=== PATIENT | female | born 1985 | race Two or more races ===

== ENCOUNTER 2021-07-10 20:05 | Emergency (ER) | payer OTHER ==
[~2021-07-10] VITALS: Ht 167.6 cm; Wt 70.5 kg
[2021-07-10 21:40] VITALS: BP 136/88
[2021-07-10] MEDS ORDERED: NO HOME MEDS (23:43)
[2021-07-10 23:58] LABS: BASOPHILS % (AUTO) 0.4 % (0-1); EOSINOPHILS % (AUTO) 0 % (0-6); HEMATOCRIT 40.8 % (35.0-45.0); HEMOGLOBIN 14.2 g/dl (12.0-16.0); LYMPHOCYTES # (AUTO) 1.7 X10'3 (1.1-4.8); LYMPHOCYTES % (AUTO) 18.4 % (21-51); MEAN CORPUSCULAR HEMOGLOBIN 29.2 PG (27.0-31.0); MEAN CORPUSCULAR HGB CONC 34.7 g/dL (33.0-36.5); MEAN CORPUSCULAR VOLUME 84.3 FL (78-98); MEAN PLATELET VOLUME 8.1 FL (7.4-10.4); MONOCYTES # (AUTO) 0.8 X10'3 (0-0.9); MONOCYTES % (AUTO) 8.1 % (2-12); NEUTROPHILS # (AUTO) 6.8 X10'3 (1.8-7.7); NEUTROPHILS % (AUTO) 73.1 % (42-75); PLATELET COUNT 275 X10'3 (140-440); RED BLOOD COUNT 4.84 X10'6 (4.20-5.60); RED CELL DISTRIBUTION WIDTH 13.2 % (11.5-14.5); WHITE BLOOD COUNT 9.3 X10'3 (4.5-11.0)
[2021-07-11 00:05] LABS: ALANINE AMINOTRANSFERASE 19 U/L (12-78); ALBUMIN 4.1 G/DL (3.4-5.0); ALBUMIN/GLOBULIN RATIO 1.1 (1.1-1.5); ALKALINE PHOSPHATASE 81 IU/L (46-116); ANION GAP 11 (8-16); ASPARTATE AMINO TRANSFERASE 12 U/L (10-37); BILIRUBIN,TOTAL 0.4 MG/DL (0.1-1.0); BLOOD UREA NITROGEN 6 MG/DL (7-18); CALCIUM 9.5 MG/DL (8.5-10.1); CHLORIDE 103 MMOL/L (99-107); CREATININE 0.75 MG/DL (0.40-0.90); GLUCOSE 107 MG/DL (70-104); POTASSIUM 3.6 MMOL/L (3.5-5.1); SODIUM 137 MMOL/L (135-145); TOTAL CARBON DIOXIDE 23.3 MMOL/L (24-32); TOTAL PROTEIN 7.9 G/DL (6.4-8.2); eGFR 88 ML/MIN
[2021-07-11 00:13] LABS: ETHANOL < 0.010 GM/DL (0.0-0.010)
[2021-07-11 01:48] LABS: CLARITY,URINE SLIGHTLY CLOUDY (Clear); COLOR,URINE YELLOW (Yellow); GLUCOSE, URINE NEGATIVE (Neg); KETONES,URINE >=80 mg/dl (Neg); LEUKOCYTE ESTERASE ,URINE TRACE (Neg); NITRITES, URINE NEGATIVE (Neg); OCCULT BLOOD,URINE SMALL (Neg); PROTEIN,URINE TRACE mg/dl (Neg)
[2021-07-11 01:51] LABS: UA COLLECTION TYPE CLN CATCH MIDSTREAM; URINE HCG NEGATIVE (NEG)
[2021-07-11 02:03] LABS: URINE AMPHETAMINE SCREEN NEGATIVE (Neg); URINE BARBITUATE SCREEN NEGATIVE (Neg); URINE BENZODIAZEPINES SCREEN NEGATIVE (Neg); URINE CANNABINOID SCREEN NEGATIVE (Neg); URINE COCAINE SCREEN NEGATIVE (Neg); URINE METHADONE SCREEN NEGATIVE (Neg); URINE OPIATE SCREEN NEGATIVE (Neg); URINE PHENCYCLIDINE SCREEN NEGATIVE (Neg)
[2021-07-11 02:04] LABS: BACTERIA,URINE 2+ /HPF (Neg); MUCUS STRANDS FEW /LPF (Neg); RBC,URINE 0-2 /HPF (0-2); SQUAMOUS EPITHELIAL CELL,UR MANY /LPF (FEW); TRANSITIONAL EPI CELLS,URINE FEW /HPF
--- NOTE | 2021-07-11 02:29 | NUR ---
PT ELOPED WITHOUT BEING DISCHARGED. PT WAS PLACED ON A HOLD AND ROUNDED ON HOURLY. WHEN WALKING BY I NOTICED SHE WAS GONE, STAFF SEARCHED ER, CALLED , AND TESSIE, NOTIFIED . PT WAS SEEN BY SECURITY GETTING IN HER CAR AND DRIVING OFF.
== END 2021-07-11 02:30 | disposition left against medical advice (07) ==
LOC: ER 20:06
DX: F60.0 Paranoid personality disorder (principal); F22 Delusional disorders; F43.10 Post-traumatic stress disorder, unspecified
CPT/HCPCS: 36415; 80053; 80305; 80320; 81001; 81025; 84443; 85025; 99284

== ENCOUNTER 2021-07-11 04:20 | Emergency (ER) | payer OTHER ==
[~2021-07-11] VITALS: Ht 167.6 cm; Wt 68.0 kg
[~2021-07-11 04:20] MED LIST: NO HOME MEDS
[2021-07-11] MEDS ORDERED: LORazepam 1 MG tablet PO ONE (04:30)
--- NOTE | 2021-07-11 04:49 | NUR ---
[facility] OFFICERS ARE HERE SPEAKING WITH PT AT THIS TIME
[2021-07-11] MEDS ORDERED: OLANZapine 2.5MG tablet PO ONE (05:10)
[2021-07-11] MEDS: OLANZapine 2.5MG tablet PO SCH (05:42)
--- NOTE | 2021-07-11 10:57 | NUR ---
PATIENT REFUSED TO TALK TO MOTHER ON THE PHONE STATING "I DONT NEED TO TALK TO HER"
--- NOTE | 2021-07-11 11:49 | NUR ---
PATIENT APPEARS TO BE SLEEPING ON BACK, RESPIRATIONS REGULAR/EVEN
--- NOTE | 2021-07-11 12:32 | NUR ---
PATIENT APPEARS TO BE SLEEPING ON LEFT SIDE. PATIENTS RESPIRATIONS EVEN. PATIENTS NEEDS ARE MET AT THIS TIME. WILL CONTINUE TO MONITER PATIENT.
--- NOTE | 2021-07-11 13:30 | NUR ---
PATIENT APPEARS TO BE SLEEPING ON RIGHT SIDE. PATIENTS RESPIRATIONS EQUAL. PATIENT HAS NO NEEDS AT THIS TIME. WILL CONTINUE TO MONITER PATIENT.
--- NOTE | 2021-07-11 15:13 | NUR ---
PATIENT APPEARS TO BE SLEEPING IN BED ON LEFT SIDE. RESPIRATIONS NORMAL. PATIENT HAS NO NEEDS AT THIS TIME. WILL CONTINUE TO MONITER
--- NOTE | 2021-07-11 16:14 | NUR ---
PATIENT APPEARS TO BE SLEEPING ON BACK. RESPIRATIONS EVEN. PATIENT HAS NO NEEDS AT THIS TIME. WILL CONTINUE TO MONITER.
--- NOTE | 2021-07-11 17:30 | NUR ---
PATIENT ASSISTED TO THE RESTROOM.
--- NOTE | 2021-07-11 17:59 | NUR ---
PATIENT IN ROOM EATING DINNER
[2021-07-11 18:06] LABS: URINE AMPHETAMINE SCREEN NEGATIVE (Neg); URINE BARBITUATE SCREEN NEGATIVE (Neg); URINE BENZODIAZEPINES SCREEN NEGATIVE (Neg); URINE CANNABINOID SCREEN NEGATIVE (Neg); URINE COCAINE SCREEN NEGATIVE (Neg); URINE METHADONE SCREEN NEGATIVE (Neg); URINE OPIATE SCREEN NEGATIVE (Neg); URINE PHENCYCLIDINE SCREEN NEGATIVE (Neg)
--- NOTE | 2021-07-11 18:30 | NUR ---
The patient moved to bed 27 from the main ER. Packet sent to [facility].
--- NOTE | 2021-07-11 20:20 | NUR ---
One to one with the patient to assess severity of mental health symptoms and self harm risk. When asked if she was employed she stated that she worked at [employer] but was on leave because she was under stress and feeling depressed. She denies being on any medications. She stated that she has had one prior psychiatric admit. She currently denies having voices and stated the last voices she had was yesterday. She currently denies being suicidal. She does continue to state she is having problems with her roommate. She stqated that she has not been sleeping well. Her affect is blunted. She answers questions apprppriately to what is asked. [facility] is planning to assess her this evening.
--- NOTE | 2021-07-11 21:12 | NUR ---
The patient is resting on her bed. She was made aware that [facility] would see her in the morning.
[2021-07-11] MEDS ORDERED: Melatonin 3mg tablet PO ONE (22:15)
[2021-07-11] MEDS ORDERED: hydrOXYzine 25 MG tablet PO ONE (22:15)
--- NOTE | 2021-07-11 22:24 | NUR ---
The patient is requesting sleep medication. Discussed with Dmitri OVERTON and orders received.
--- NOTE | 2021-07-11 23:39 | NUR ---
The patient appears to be sleeping
--- NOTE | 2021-07-12 01:20 | NUR ---
THe patient appars to be sleeping
--- NOTE | 2021-07-12 03:52 | NUR ---
The patient appears to be sleeping
--- NOTE | 2021-07-12 05:59 | NUR ---
The patient appeared to have slept well throughout the night after receiving sleep medication
--- NOTE | 2021-07-12 06:42 | NUR ---
Pt is sleeping on her left side. RR even and unlabored.
--- NOTE | 2021-07-12 07:39 | NUR ---
Pt up requesting her cell phone to look up phone numbers so she can call her family to let them know where she is at.
--- NOTE | 2021-07-12 08:10 | NUR ---
Pt is waiting for her breakfast.
--- NOTE | 2021-07-12 08:48 | NUR ---
[facility] at the bedside for assessment.
[2021-07-12] MEDS: OLANZapine 2.5MG tablet PO SCH (08:54)
--- NOTE | 2021-07-12 11:00 | NUR ---
Pt is up getting phone numbers off of her phone for [facility]. Pt is calm and cooperative with staff. She appears somewhat suspicious and paranoid. She follows directions well.
--- NOTE | 2021-07-12 13:05 | NUR ---
Pt was up for breakfast she is now back laying down on her bed. She appears to be resting with her eyes closed. RR even and unlabored.
--- NOTE | 2021-07-12 14:58 | NUR ---
Pt remains asleep. She appears to be sleeping. RR even and unlabored.
--- NOTE | 2021-07-12 18:02 | NUR ---
[facility] is looking at the pt and considering admission. The hospital is requesting an EKG, ASA, and Tylenol levels prior to acceptance. Orders put in.
--- NOTE | 2021-07-12 19:37 | NUR ---
The patient has been resting on his bed and has been quiet and polite. She stated her mood was "stabilized" but she felt groggy from medications. She denies voices, SI or high anxiety. She is not socializing with others. During the evening assessment her replies are soft and minimum
[2021-07-12 20:01] LABS: ACETAMINOPHEN < 2.0 UG/ML (10-30)
[2021-07-12] MEDS: Melatonin 3mg tablet PO SCH (20:20)
--- NOTE | 2021-07-12 20:32 | NUR ---
The patient appears to be sleeping
--- NOTE | 2021-07-12 22:04 | NUR ---
The patient appears to be sleeping
--- NOTE | 2021-07-12 23:48 | NUR ---
The patient appears to be sleeping
--- NOTE | 2021-07-13 01:54 | NUR ---
The patient appears to be sleeping
--- NOTE | 2021-07-13 03:21 | NUR ---
The patient appears to be sleeping
--- NOTE | 2021-07-13 04:49 | NUR ---
The patient appears to be sleeping
--- NOTE | 2021-07-13 06:58 | NUR ---
THe patient appears to be sleeping
[2021-07-13] MEDS: OLANZapine 2.5MG tablet PO SCH (07:58)
--- NOTE | 2021-07-13 08:11 | NUR ---
The patient is up to use the bathroom
--- NOTE | 2021-07-13 08:51 | NUR ---
The patient is resting on her bed
--- NOTE | 2021-07-13 09:58 | NUR ---
The patient is resting on her bed and appears to be sleeping
--- NOTE | 2021-07-13 12:04 | NUR ---
Catalina russell in [facility] - 07/13/21 at 1210 by MICHAEL Pt has has multiple urine incontinent episodes, due to needing a urine sample for placement a straight cath was administered wit result. Urine sent to lab.
--- NOTE | 2021-07-13 12:05 | NUR ---
Catalina russell in [facility] - 07/13/21 at 1210 by MICHAEL Pt is resting quietly in her bed, respirations even and unlabored.
--- NOTE | 2021-07-13 12:12 | NUR ---
The patient awake and making a phone call to her mother
--- NOTE | 2021-07-13 13:17 | NUR ---
Nurse to Nurse with Candida at [facility]
--- NOTE | 2021-07-13 14:34 | NUR ---
The patient appears to be sleeping
--- NOTE | 2021-07-13 16:34 | NUR ---
PASHA WILL BE HERE ABOUT 13:00 TOMORROW
--- NOTE | 2021-07-13 16:40 | NUR ---
The patient is resting on her bed. She is aware that transportation is still pending to [facility]
[2021-07-13] MEDS ORDERED: hydrOXYzine 25 MG tablet PO ONE (17:35)
--- NOTE | 2021-07-13 17:48 | NUR ---
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 She is asking for anxiety medications. Dr. Bloom made aware and orders received.
--- NOTE | 2021-07-13 18:27 | NUR ---
pt sitting in bed eating dinner quietly
--- NOTE | 2021-07-13 19:03 | NUR ---
pt states she is here because she "needs help". Pt is guarded and answers questions w/yes or no. States she has no needs at this time.
[2021-07-13] MEDS: Melatonin 3mg tablet PO SCH (20:08)
--- NOTE | 2021-07-13 20:15 | NUR ---
PT SAT UP IN BED TO TAKE HS MEDS AND WENT BACK TO SLEEP
--- NOTE | 2021-07-13 23:57 | NUR ---
Pt laying in bed appears to be sleeping rr 16, even and unlabored.
--- NOTE | 2021-07-14 02:03 | NUR ---
Pt is laying on her back appears to be asleep rr even and unlabored
--- NOTE | 2021-07-14 04:24 | NUR ---
pt appears to be sleeping rr even and unlabored
[2021-07-14 05:43] VITALS: BP 106/67
--- NOTE | 2021-07-14 06:01 | NUR ---
Pt appears to be asleep rr even and unlabored
--- NOTE | 2021-07-14 06:35 | NUR ---
Patient ambulatory to BR, Steady gait. No distress observed. Continue to monitor.
--- NOTE | 2021-07-14 08:17 | NUR ---
Patient sitting up and eating. No distress observed. Continue to monitor.
[2021-07-14] MEDS: OLANZapine 2.5MG tablet PO SCH (08:58)
--- NOTE | 2021-07-14 09:50 | NUR ---
Patient speaking to her mom on the phone. No distress observed. Continue to monitor.
--- NOTE | 2021-07-14 10:37 | NUR ---
Patient sleeping supine. No distress observed. Continue to monitor.
--- NOTE | 2021-07-14 12:20 | NUR ---
Patient eating lunch. No distress observed. Continue to monitor.
--- NOTE | 2021-07-14 13:29 | NUR ---
Patient awaiting [facility] transport to [facility] in [place]. Patient is on the phone attempting to find out where her car was towed. No distress observed. Continue to monitor.
--- NOTE | 2021-07-14 13:45 | NUR ---
Patient just left with her $25,000+ [place], credit card and all her belongings. RN gave the valuables to Lucy Talbert and Chapin Whiting, investigations chief from [facility], who will be transporting the patient to [facility] to the E.R. and then to [address]. Patient is calm and in no distress.
== END 2021-07-14 13:45 ==
LOC: ER 04:22 → EEVIPCON 04:22 → ER 07-14 13:45
DX: S80.212A Abrasion, left knee, initial encounter (principal); Z20.822 Contact with and (suspected) exposure to COVID-19; S80.211A Abrasion, right knee, initial encounter; R45.851 Suicidal ideations; F20.9 Schizophrenia, unspecified; X83.8XXA Intentional self-harm by other specified means, initial encounter; Y93.89 Activity, other specified; Y92.89 Other specified places as the place of occurrence of the external cause; Y99.8 Other external cause status
CPT/HCPCS: 36415; 80305; 80329; 87635; 99285; C9803; Q0177